=== PATIENT | female | born 1995 | race Asian ===

== ENCOUNTER 2018-11-24 09:42 | Outpatient (CLI) | payer OTHER ==
[2018-11-24 12:28] LABS: BASOPHILS # (AUTO) 0.1 10^3/uL (0.0-0.1); BASOPHILS % (AUTO) 1.2 %; EOSINOPHILS # (AUTO) 0.1 10^3/uL (0.0-0.7); EOSINOPHILS % (AUTO) 1.6 %; HGB - HEMOGLOBIN 12.6 g/dL (12.0-16.0); LYMPHOCYTES # (AUTO) 1.9 10^3/uL (1.5-3.5); LYMPHOCYTES % (AUTO) 27.4 %; MEAN CORPUSCULAR HEMOGLOBIN 28.6 pg (27.0-31.0); MEAN CORPUSCULAR HGB CONC 33.1 g/dL (32.0-36.0); MEAN CORPUSCULAR VOLUME 86.5 fL (81.0-99.0); MEAN PLATELET VOLUME 7.2 fL (7.9-10.8); MONOCYTES # (AUTO) 0.5 10^3/uL (0.0-1.0); NEUTROPHILS # (AUTO) 4.3 10^3/uL (1.5-6.6); NEUTROPHILS % (AUTO) 62.8 %; PLT - PLATELET COUNT 280 10^3/uL (130-450); RED BLOOD COUNT 4.39 10^6/uL (4.20-5.40); RED CELL DISTRIBUTION WIDTH 13.4 % (12.0-15.0); WHITE BLOOD COUNT 6.8 x10^3/uL (4.8-10.8)
[2018-11-24 13:33] LABS: HB2 TOTAL 13.7 g/dL; HEMOGLOBIN A1C 0.47 g/dL; HEMOGLOBIN A1C % 5.3 % (4.6-6.2)
[2018-11-24 13:41] LABS: ALBUMIN 4.1 g/dL (3.2-5.5); ALBUMIN/GLOBULIN RATIO 1.2 (1.0-2.2); ALKALINE PHOSPHATASE 42 IU/L (42-121); ALT ALANINE AMINOTRANSFERASE 17 IU/L (10-60); AST ASPARTATE AMINOTRANSFERASE 20 IU/L (10-42); BILIRUBIN,TOTAL 0.5 mg/dL (0.2-1.0); BUN - BLOOD UREA NITROGEN 11 mg/dL (6-20); CALCIUM 8.7 mg/dL (8.5-10.3); CARBON DIOXIDE - CO2 24 mmol/L (21-32); CHLORIDE 103 mmol/L (101-111); CHOL/HDL RATIO 2.6 (<4.4); CHOLESTEROL 161 mg/dL; CREATININE 0.5 mg/dL (0.4-1.0); GFR - MDRD 152 (>89); GLUCOSE 97 mg/dL (70-100); HDL CHOLESTEROL 61 mg/dL; LDL CHOLESTEROL,CALCULATED 90 mg/dL; LDL/HDL RATIO 1.5 (<4.4); SODIUM 133 mmol/L (135-145); TOTAL PROTEIN 7.6 g/dL (6.7-8.2); VLDL CHOLESTEROL 10 mg/dL
== END 2018-11-24 23:59 | disposition home or self-care (01) ==
LOC: LAB.WCP 09:42
PROVIDERS: ATTEND Physician Assistant
DX: Z00.00 Encounter for general adult medical examination without abnormal findings (principal); Z33.1 Pregnant state, incidental
CPT/HCPCS: 36415; 80053; 80061; 83036; 83721; 84443; 84702; 85025

== ENCOUNTER 2018-12-09 22:10 | Outpatient (CLI) | payer OTHER ==
--- NOTE | 2018-12-10 00:37 | Ultrasound Report ---
Reason: Procedure Date: 12/09/2018 Accession Number: [id number] / [id number] Procedure: US - OB First Trimester CPT Code: FULL RESULT: EXAM: FIRST TRIMESTER OBSTETRIC ULTRASOUND (Less than 11 weeks) EXAM DATE: 12/09/2018 11:15 PM. CLINICAL HISTORY: . LMP: 09/27/2018. COMPARISONS: None. TECHNIQUE: Transabdominal and transvaginal ultrasound examination with static image documentation. CLINICAL DATES: EGA 10 weeks 3 days with HATTIE 07/04/2019 based on LMP. ASSESSMENT: Gestational Sac: Single intrauterine. Mean gestational sac diameter: 31.9 mm = 8 weeks 1 day. Embryo: CRL (crown-rump length) 21.1 mm = 8 weeks 5 days. Cardiac activity: 169 beats per minute. Yolk sac: 3.4 mm. Amniotic fluid: Not accurately assessed at this gestational age. Early placenta: Not visible at this gestational age. Other: No perigestational fluid collection demonstrated. MATERNAL STRUCTURES: Uterus: Retroverted. Unremarkable. Cervix: Closed. Right Ovary/Adnexa: The ovary measures 3.6 x 2.1 x 1.7 cm, volume 7 cc. Unremarkable. Left Ovary/Adnexa: The ovary measures 3.7 x 2.3 x 1.9 cm, volume 8 cc. Unremarkable. Free Fluid: None. Other: None. IMPRESSION: 1. Single viable intrauterine at EGA 8 weeks 5 days with HATTIE 07/16/2019 based on crown-rump length, which is discordant with LMP dating. 2. Assigned dating is HATTIE 07/16/2019 based on current ultrasound.. RADIA
== END 2018-12-09 22:11 | disposition home or self-care (01) ==
LOC: DI 22:10
PROVIDERS: ATTEND Nurse Practitioner Obstetrics & Gynecology
DX: Z32.01 Encounter for pregnancy test, result positive (principal)
CPT/HCPCS: 76801; 76817

== ENCOUNTER 2018-12-14 08:00 | Outpatient (CLI) | payer OTHER ==
[2018-12-14 09:37] LABS: MUDS CUTOFF CONCENTRATIONS CUTOFF CONC BELOW:
[2018-12-14 12:46] LABS: AMPHETAMINE SCREEN,URINE NEGATIVE (NEGATIVE); BASOPHILS # (AUTO) 0.1 10^3/uL (0.0-0.1); BASOPHILS % (AUTO) 0.6 %; BENZODIAZEPINES SCREEN, URINE NEGATIVE (NEGATIVE); COCAINE SCREEN URINE NEGATIVE (NEGATIVE); EOSINOPHILS # (AUTO) 0.2 10^3/uL (0.0-0.7); EOSINOPHILS % (AUTO) 1.9 %; HGB - HEMOGLOBIN 12.5 g/dL (12.0-16.0); LYMPHOCYTES # (AUTO) 2.1 10^3/uL (1.5-3.5); LYMPHOCYTES % (AUTO) 23.5 %; MEAN CORPUSCULAR HEMOGLOBIN 28.9 pg (27.0-31.0); MEAN CORPUSCULAR HGB CONC 33.5 g/dL (32.0-36.0); MEAN CORPUSCULAR VOLUME 86.4 fL (81.0-99.0); MEAN PLATELET VOLUME 7.3 fL (7.9-10.8); METHADONE SCREEN, URINE NEGATIVE (NEGATIVE); METHAMPHETAMINES SCREEN, URINE NEGATIVE (NEGATIVE); MONOCYTES # (AUTO) 0.7 10^3/uL (0.0-1.0); MONOCYTES % (AUTO) 7.4 %; NEUTROPHILS # (AUTO) 5.9 10^3/uL (1.5-6.6); NEUTROPHILS % (AUTO) 66.6 %; OPIATE SCREEN, URINE NEGATIVE (NEGATIVE); OXYCODONE SCREEN, URINE NEGATIVE (NEGATIVE); PLT - PLATELET COUNT 292 10^3/uL (130-450); PROPOXYPHENE SCREEN, URINE NEGATIVE (NEGATIVE); RED BLOOD COUNT 4.32 10^6/uL (4.20-5.40); RED CELL DISTRIBUTION WIDTH 13.3 % (12.0-15.0); TRICYCLIC ANTIDEPRESSANT,URINE NEGATIVE (NEGATIVE); WHITE BLOOD COUNT 8.9 x10^3/uL (4.8-10.8)
[2018-12-15 12:16] LABS: HEPATITIS C ANTIBODY NON-REACTIVE (NON-REACTIVE)
[2018-12-15 13:13] LABS: HEPATITIS B SURFACE ANTIGEN NON-REACTIVE (NON-REACTIVE)
[2018-12-15 14:33] LABS: HIV AG/AB 4TH GEN NON-REACTIVE (NON-REACTIVE)
== END 2018-12-14 08:01 | disposition home or self-care (01) ==
LOC: LAB.WCP 08:00
PROVIDERS: ATTEND Nurse Practitioner Obstetrics & Gynecology
DX: Z36.89 Encounter for other specified antenatal screening (principal)
CPT/HCPCS: 36415; 80306; 81599; 85025; 86592; 86762; 86803; 86850; 86900; 86901; 87340; 87389

== ENCOUNTER 2019-02-11 10:20 | Outpatient (CLI) | payer OTHER ==
[2019-02-11 20:53] LABS: TRICHOMONAS VAGINALIS DNA NEGATIVE (NEGATIVE)
== END 2019-02-11 23:59 | disposition home or self-care (01) ==
LOC: LAB.R 10:20
PROVIDERS: ATTEND Nurse Practitioner Obstetrics & Gynecology
DX: Z36.89 Encounter for other specified antenatal screening (principal)
CPT/HCPCS: 87491; 87591; 87661

== ENCOUNTER 2019-02-15 08:28 | Outpatient (CLI) | payer OTHER ==
--- NOTE | 2019-02-15 15:10 | Ultrasound Report ---
Reason: SUPERVISION OF NORMAL Procedure Date: 02/15/2019 Accession Number: [id number] / [id number] Procedure: US - OB Detailed Eval CPT Code: FULL RESULT: EXAM: COMPLETE OBSTETRICAL ULTRASOUND EXAM DATE: 02/15/2019 10:37 AM. CLINICAL HISTORY: anatomic survey. COMPARISON: 12/09/2018 TECHNIQUE: Real-time sonographic evaluation of the fetus performed by the oracle data warehouse developer. Multiple risk control field representative static images were saved for review. DATING: Established EGA 18 weeks 3 days with HATTIE 07/16/2019 based on first ultrasound 12/09/2018. EGA 18 weeks 2 days with HATTIE 07/17/2019 based on the current ultrasound. GENERAL EVALUATION Muse . Cardiac activity: 144 bpm. movement: Present Presentation: Variable Placenta: Anterior position. No evidence for previa. Umbilical cord: 3 vessel cord. Central placental cord origin. Amniotic fluid: Subjectively normal. MVP 3.9 cm. BIOMETRY Bi-Parietal Diameter (BPD): 4.1 cm, 18 weeks 3 days Head Circumference (HC): 15.1 cm, 18 weeks 1 day Abdominal Circumference (AC): 13 cm, 18 weeks 4 days Femur Length (FL): 2.9 cm, 18 weeks 5 days Estimated Weight: 247 g, 54th percentile for 18 weeks 3 days. ANATOMY The intracranial structures, profile, face/nose/lips, spine, stomach, abdominal wall and cord insertion, kidneys, bladder, and extremities were visualized and demonstrate no abnormality. cardiac anatomy and diaphragm are suboptimally imaged. Suggest follow-up ultrasound in 2 weeks. MATERNAL STRUCTURES Uterus: Unremarkable. Cervix: Long and closed. Transabdominal length 3.7 cm. Right ovary/adnexa: Unremarkable. Left ovary/adnexa: Unremarkable. Free fluid: None. IMPRESSION: 1. Muse live intrauterine with gestational age 18 weeks 3 days based on first ultrasound. 2. Estimated weight is within expected limits for assigned dating. 3. Normal anatomic survey except for cardiac anatomy and diaphragm which are not well seen today. Suggest follow-up ultrasound in 2 weeks. RADIA
== END 2019-02-15 08:29 | disposition home or self-care (01) ==
LOC: DI 08:28
PROVIDERS: ATTEND Registered Nurse
DX: Z34.92 Encounter for supervision of normal pregnancy, unspecified, second trimester (principal)
CPT/HCPCS: 76811

== ENCOUNTER 2019-02-25 14:58 | Outpatient (CLI) | payer OTHER ==
--- NOTE | 2019-02-26 16:46 | Ultrasound Report ---
Reason: ENCOUNTER FOR OTHER SPECIFIED SCREENING Procedure Date: 02/25/2019 Accession Number: [id number] / [id number] Procedure: US - OB F/U or Repeat CPT Code: FULL RESULT: EXAM: FOLLOW-UP OBSTETRICAL ULTRASOUND EXAM DATE: 02/25/2019 04:15 PM. CLINICAL HISTORY: Incomplete anatomy survey COMPARISON: 02/15/2019. TECHNIQUE: Real-time sonographic evaluation of the fetus performed by the delta system freight car cleaner. Multiple containers sales representative static images were saved for review. DATING: Established EGA 19 weeks 6 days with HATTIE 07/16/2019 based on established dates. GENERAL EVALUATION Muse . Cardiac activity: 151 bpm. movement: Visualized. Presentation: Cephalic. Placenta: Anterior position. No previa. Amniotic fluid: Within normal limits. LANDY 15.7 cm. MVP 4.6 cm. ANATOMY Four-chamber heart, RVOT, LVOT, and diaphragm are seen and are unremarkable. MATERNAL STRUCTURES Cervix is closed, measuring 4.5 cm. IMPRESSION: 1. Muse live intrauterine with gestational age 19 weeks 6 days based on established dates.. 2. Four-chamber heart, RVOT, LVOT, and diaphragm are seen and are unremarkable. RADIA
== END 2019-02-25 14:59 | disposition home or self-care (01) ==
LOC: DI 14:58
PROVIDERS: ATTEND Registered Nurse
DX: Z36.89 Encounter for other specified antenatal screening (principal)
CPT/HCPCS: 76816

== ENCOUNTER 2019-04-25 08:00 | Outpatient (CLI) | payer OTHER | END 2019-04-25 23:59 | disposition home or self-care (01) | LOC: LAB.R 08:00 | PROVIDERS: ATTEND Obstetrics & Gynecology | DX: O99.89 Other specified diseases and conditions complicating pregnancy, childbirth and the puerperium (principal); R10.2 Pelvic and perineal pain | CPT/HCPCS: 82731 ==

== ENCOUNTER 2019-05-02 08:00 | Outpatient (CLI) | payer OTHER ==
[2019-05-02 12:11] LABS: HGB - HEMOGLOBIN 10.2 g/dL (12.0-16.0); MEAN CORPUSCULAR HEMOGLOBIN 26.6 pg (27.0-31.0); MEAN CORPUSCULAR VOLUME 85.7 fL (81.0-99.0); MEAN PLATELET VOLUME 9.3 fL (7.9-10.8); RED BLOOD COUNT 3.84 10^6/uL (4.20-5.40); RED CELL DISTRIBUTION WIDTH 13.8 % (12.0-15.0); WHITE BLOOD COUNT 10.9 x10^3/uL (4.8-10.8)
== END 2019-05-02 23:59 | disposition home or self-care (01) ==
LOC: LAB.WCP 08:00
PROVIDERS: ATTEND Obstetrics & Gynecology
DX: Z36.89 Encounter for other specified antenatal screening (principal)
CPT/HCPCS: 36415; 82950; 85027; 86850

== ENCOUNTER 2019-05-13 08:24 | Outpatient (CLI) | payer OTHER | END 2019-05-13 08:25 | disposition home or self-care (01) | LOC: LAB 08:24 | PROVIDERS: ATTEND Obstetrics & Gynecology | DX: O99.810 Abnormal glucose complicating pregnancy (principal) | CPT/HCPCS: 36415; 82951; 82952 ==

== ENCOUNTER 2019-06-17 17:01 | Outpatient (CLI) | payer OTHER ==
--- NOTE | 2019-06-20 04:15 | Ultrasound Report ---
Reason: GESTATIONAL DIABETES - GROWTH AND LANDY Procedure Date: 06/17/2019 Accession Number: [id number] / [id number] Procedure: US - OB F/U or Repeat CPT Code: Final Report FULL RESULT: EXAM: FOLLOW-UP OBSTETRICAL ULTRASOUND EXAM DATE: 06/17/2019 06:06 PM. CLINICAL HISTORY: GESTATIONAL DIABETES - GROWTH AND LANDY. COMPARISON: OB F/U OR REPEAT 02/25/2019 3:12 PM OB DETAILED EVAL 02/15/2019 8:37 AM. TECHNIQUE: Real-time sonographic evaluation of the fetus performed by the manager activities. Multiple construction representative static images were saved for review. DATING: Established EGA 35 weeks 6 days with HATTIE 07/16/2019 based on initial ultrasound. EGA 37 weeks 4 days with HATTIE 07/04/2019 based on LMP. EGA 34 weeks 3 days with HATTIE 07/26/2019 based on the current ultrasound. GENERAL EVALUATION Muse . Cardiac activity: 147 bpm. movement: Visualized. Presentation: Cephalic. Placenta: Anterior position. Amniotic fluid: Normal. LANDY 14.6 cm. MVP 7.1 cm. BIOMETRY Bi-Parietal Diameter (BPD): 8.4 cm, 34 weeks 0 days Head Circumference (HC): 30.7 cm, 34 weeks 1 day Abdominal Circumference (AC): 31.1 cm, 35 weeks 0 days Femur Length (FL): 6.7 cm, 34 weeks 3 days Estimated Weight: 2488 g, 20.2 percentile for 35 weeks 6 days. MATERNAL STRUCTURES Cervix: 5.3 cm on transabdominal images. IMPRESSION: 1. Muse live intrauterine with gestational age 35 weeks 6 days based on initial ultrasound. 2. Estimated weight is within expected limits for assigned dating. 3. Normal interval growth compared to 02/15/2019. RADIA
== END 2019-06-17 17:02 | disposition home or self-care (01) ==
LOC: DI 17:01
PROVIDERS: ATTEND Nurse Practitioner Obstetrics & Gynecology
DX: O24.419 Gestational diabetes mellitus in pregnancy, unspecified control (principal)
CPT/HCPCS: 76816

== ENCOUNTER 2019-06-22 08:00 | Outpatient (CLI) | payer OTHER ==
[2019-06-22 21:59] LABS: TRICHOMONAS VAGINALIS DNA NEGATIVE (NEGATIVE)
== END 2019-06-22 23:59 | disposition home or self-care (01) ==
LOC: LAB.R 08:00
PROVIDERS: ATTEND Nurse Practitioner Obstetrics & Gynecology
DX: Z36.85 Encounter for antenatal screening for Streptococcus B (principal); Z11.3 Encounter for screening for infections with a predominantly sexual mode of transmission
CPT/HCPCS: 87491; 87591; 87661; 87797

== ENCOUNTER 2019-07-12 08:54 | Inpatient (IN) | payer OTHER ==
[2019-07-12] MEDS ORDERED: ONDANSETRON 4 MG/2 ML VIAL IVP PRN (09:21)
[2019-07-12] MEDS ORDERED: OXYTOCIN/DEXTROSE 5 % 30 UNIT/500 ML BAG IV PRN (09:21)
[2019-07-12] MEDS ORDERED: SODIUM CHLORIDE FLUSH 0.9% 10 ML SYRINGE IVP PRN (09:21)
[2019-07-12] MEDS ORDERED: fentaNYL 100 MCG/2 ML VIAL IVP PRN (09:21)
[2019-07-12 09:49] LABS: BASOPHILS # (AUTO) 0.1 10^3/uL (0.0-0.1); BASOPHILS % (AUTO) 0.5 %; EOSINOPHILS % (AUTO) 0.3 %; HGB - HEMOGLOBIN 10.9 g/dL (12.0-16.0); LYMPHOCYTES # (AUTO) 1.7 10^3/uL (1.5-3.5); LYMPHOCYTES % (AUTO) 16.6 %; MEAN CORPUSCULAR HEMOGLOBIN 25.1 pg (27.0-31.0); MEAN CORPUSCULAR HGB CONC 31.3 g/dL (32.0-36.0); MEAN PLATELET VOLUME 9.3 fL (7.9-10.8); MONOCYTES # (AUTO) 0.8 10^3/uL (0.0-1.0); MONOCYTES % (AUTO) 7.8 %; NEUTROPHILS # (AUTO) 7.6 10^3/uL (1.5-6.6); NEUTROPHILS % (AUTO) 73.8 %; PLT - PLATELET COUNT 262 10^3/uL (130-450); RED BLOOD COUNT 4.35 10^6/uL (4.20-5.40); RED CELL DISTRIBUTION WIDTH 15.5 % (12.0-15.0); WHITE BLOOD COUNT 10.2 x10^3/uL (4.8-10.8)
[2019-07-12] MEDS ORDERED: ACETAMINOPHEN 325 MG TABLET PO SCH (10:00)
[2019-07-12] MEDS ORDERED: LACTATED RINGERS 1,000 ML IV SCH (10:00)
--- NOTE | 2019-07-12 10:49 | HISTORY & PHYSICAL EXAMINATION ---
Admit History - Visit Reason Visit Reason: Contractions - : 3 Parity: 1 Premature: 0 Ectopic: 0 : 1 Care: positive: [facility] Risk/History: positive: None Complications This : positive: Gestational diabetes Smoking Status: Former smoker - Mother's Labs Mother's Blood Type: positive: O Mother's RH: positive: Positive GBS: positive: Group B Step Negative Rubella Status: positive: Equivocal Meds/Allgy - Allergies Allergies/Adverse Reactions: Allergies Allergy/AdvReac Type Severity Reaction Status Date / Time No Known Drug Allergies Allergy Verified 07/12/19 09:55 Review of Systems - Constitutional Constitutional: denies: Fatigue, Fever, Chills, Malaise - Eyes Eyes: denies: Blurred vision, Spots in vision, Vision loss - Cardiovascular Cariovascular: denies: Irregular heart rate, Palpitations, Chest pain, Edema - Respiratory Respiratory: denies: SOB at rest - Gastrointestinal Gastrointestinal: denies: Change in bowel habits - Integumentary Integumentary: denies: Rash, Pruritis - Neurological Neurological: denies: Headache, Dizziness Physical - Abdominal Exam Vital Signs: Temp Pulse Resp BP Pulse Ox 36.6 C 109 H 20 114/75 100 07/12/19 09:10 07/12/19 09:10 07/12/19 09:10 07/12/19 09:10 07/12/19 09:10 Contraction Frequency (min/apart): 2-3 Contraction Intensity: positive: Strong Uterine Resting Tone: positive: Soft - Monitoring Heart Rate Baseline: 130 Strip Review: positive: Category I - Presentation Presentation: positive: Vertex - Vaginal Exam Membranes: positive: Membranes intact Dilation (in cm): 6 - Speculum Exam Speculum Exam Performed: positive: No Plan for Labor - Plan For Labor I expect patient to be DC'd or transferred within 96 hours.: Yes Plan for Labor: HPI: Linsey is a 24yo @ 39.3wks gestation by 8.5wk U/S presents with c/o contractions that began this morning at 0400am and have become increasingly uncomfortable. She denies vaginal bleeding or leakage for fluid. She reports +FM. She has been a patient of [facility] for the duration of her which has been complicated only by gestational diabetes diagnosed at 30wks gestation. She has maintained tight glycemic control throughout and her third trimester growth and LANDY were WNL with EFW 20.2%tile. She was admitted to [facility] for expectant management. Dating criteria: LMP 09/27/2018 Initial ultrasound 12/09/2018 disconcordant with LMP and dates at 8.5wks gestation Serial exams - agree OB Hx: G1: 2009 8wks gestation - D&C G2: 03/28/2012 36wks , unmedicated, Female, 7lbs Medications: Ferrous gluconate; PNV Allergies NKDA PMHx: unremarkable Surgical Hx: Left ear laceration Social Hx: Former smoker - no ETOH or IVDA. Family Hx: Diabetes- Mother, PGM, PGF, MGM, MGF; Alocholism - brother; Anxiety/depression - brother; Breast cancer - paternal aunt; osteoporosis - mother; Hypertension - Mom, dad; Asthma - sister. labs: Blood type O pos, antibody neg Rubella equivocal RPR non-reactive Hgb 10.9; Hct 34.8 PLT 262 GC/CT neg Hep C neg Hep B neg HIV neg Hgb A1C 5.3 1 hour GTT elevated 155- 3 hour GTT diagnoses gestational diabetes - 173, 167, 144 HSV - denies Group B strep NEG; repeat GC/CT neg Immunizations: Tdap 04/25/2019 Influenza administered at outside clinic Ultrasounds: 12/09/2018 initial ultrasound disconcordant with LMP dating and dates at 8.5wks gestation FAS 02/15/2019 WNL with the exception of suboptimal visualization of cardiac structures. Anterior placenta, no previa. Size c/w dating. 02/25/19 f/u WNL Growth and LANDY 06/17/2019 WNL. 20.2%tile. LANDY WNL. Size c/w dating. Physical Exam: Normocephalic, atraumatic PERRLA Heart RRR w/o M/G/R LUngs CTAB Abdomen gravid, soft, nontender EFW 3000g FHR baseline 130s, moderate variability, + accels, no decels Contractions palpate strong every 2-3 minutes with soft resting tone SVE 6cm, vertex, intact membranes Bilateral LE's no edema Assessment: 24yo @ 39.3wks gestation by 8.5wk U/S Active labor GBS neg A1GDM Rubella equivocal - MMR Plan: Admit for expectant management Continuous monitoring Jacuzzi PRN, Nitrous oxide PRN Epidural per maternal request Anticipate
--- NOTE | 2019-07-12 12:18 | PROVIDER PROGRESS NOTE ---
Labor Progress Note - Uterine Monitoring Uterine Monitoring Mode: positive: External toco Contraction Frequency (min/apart): 2-3 Contraction Intensity: positive: Strong Uterine Resting Tone: positive: Soft - Monitoring Monitor Mode: positive: External ultrasound Heart Rate Baseline: 135 Heart Rate Variability: positive: Moderate (6-25 bmp) Accelerations: positive: Present, 15x15 Decelerations: positive: None Strip Review: positive: Category I - Vaginal Exam Dilation (in cm): 7-8 Effacement (%): 90 Cervical Position: Anterior - Labor Progress Note Labor Progress Note/Additional Text: S: Laying on right side and breathing through contractions. She request nitrous oxide for pain management at this time and declines epidural. Her mother is supportive at the bedside. O: Fhr baseline 135, moderate variability, + accels, no decels Contractions palpate strong every 2-3 minutes with soft resting tone AROM at 1215 and was noted to be a moderate amount of clear fluid SVE 7-8/90/0, vertex, anterior, soft/stretchy A: 24yo @ 39.3wks gestation by 8.5wk U/S GBS neg Active labor A1GDM P: Continue expectant management Continuous monitoring Nitrous oxide PRN Epidural per maternal request Anticipate
[2019-07-12] MEDS ORDERED: LIDOCAINE-MPF 1% 30 ML VIAL ONE ×2 (13:07→13:28)
[2019-07-12] MEDS ORDERED: LIDOCAINE-MPF 1% 30 ML VIAL ID PRN (13:15)
[2019-07-12] MEDS ORDERED: WITCH HAZEL/GLYCERIN 1 PAD TOP PRN (14:31)
[2019-07-12] MEDS ORDERED: HYDROCORTISONE 1% CREAM 28 GM TUBE PR PRN (14:31)
[2019-07-12] MEDS: IBUPROFEN 800 MG TABLET PO SCH ×2 (14:45→20:24)
[2019-07-12] MEDS: ACETAMINOPHEN 500 MG TABLET PO SCH ×2 (14:45→20:23)
--- NOTE | 2019-07-12 14:47 | DELIVERY NOTE ---
Delivery Note - Labor Labor: positive: Spontaneous, Augmented by ARM - Infant Delivery Method Delivery Method: positive: Spontaneous vaginal delivery - Presentation Presentation: positive: Vertex, QUIN - left occiput anterior - Nuchal Cord Nuchal Cord: positive: Present, Reduced - Amniotic Fluid Description Amniotic Fluid Description: positive: Clear - Episiotomy Type Episiotomy Type: positive: None - Laceration Laceration: positive: 2nd degree, Vaginal - Suture Suture Type: positive: Vicryl Suture Size: positive: 2-0 - Delivery Outcome Delivery Outcome: positive: Livebirth - : positive: Placed in direct skin contact with mother, Stimulated, Warmed, [place] used sex: positive: Female - Cord Cord: positive: 3 vessels - Placenta Placenta: positive: Intact, Spontaneous - Estimated Blood Loss Estimated Blood Loss (in cc): 300 - Post Delivery Events Post Delivery Events: positive: No post delivery events - Delivery Comments (Free Text/Narrative) Delivery Comments (Free Text/Narrative): Labor: This 24yo @ 38.3wks gestation by 8.5wk U/S presented in active labor on 08/11/2019 at approximately 0925. Cervix was 6/90/-1, anterior, vertex, with intact membranes. FHR pattern demonstrated Category I pattern throughout labor. AROM at 1215 was noted to be a moderate amount of clear fluid. The patient progressed to c/c/+1 with spontaneous urge to push at 1254. : Normal of viable female on 07/12/2019 @ 1301. Nuchal cord x 1 easily reduced. The was stimulated, dried, and placed skin to skin. 's were 9/9 at 1 and 5 min respectively. The umbilical cord was allowed to stop pulsating at which time it was doubly clamped by CNM and cut by FOB. Pitocin administered via IV for hemostasis. Cord blood was obtained. Placenta delivered spontaneously and intact at 1305. 3VC. Cord blood was obtained. EBL 300mL. Uterine fundus firm and there is no excessive bleeding. The perineum, vagina, and cervix were inspected and found to have 2nd degree vaginal and perineal laceration which was repaired using a 2-[address]-1 needle in standard f ashion under sterile conditions. Vaginal examination following repair was done. Tissues well approximated. initiated. Family bonding well. Both mother and baby were left in stable condition.
[2019-07-12] MEDS ORDERED: SODIUM CHLORIDE FLUSH 0.9% 10 ML SYRINGE IVP SCH (17:00)
[2019-07-12] MEDS: DOCUSATE SODIUM 100 MG CAPSULE PO SCH (20:24)
[2019-07-13] MEDS: IBUPROFEN 800 MG TABLET PO SCH ×2 (05:24→12:20)
[2019-07-13] MEDS: ACETAMINOPHEN 500 MG TABLET PO SCH ×2 (05:24→13:54)
[2019-07-13] MEDS: DOCUSATE SODIUM 100 MG CAPSULE PO SCH (09:13)
--- NOTE | 2019-07-13 12:23 | Discharge Plan ---
Discharge Plan Problem Reviewed?: Yes Disposition: Home, Self Care Condition: Good Diet: Regular Activity Restrictions: No Restrictions Shower Restrictions: No Driving Restrictions: No Weight Bearing: Full Weight No Smoking: If you smoke, Please STOP! Call for help. Follow-up with: Savanah Haque CNM, ARNP [Provider Admit Priv/Credential] -
--- NOTE | 2019-07-13 12:27 | PROVIDER PROGRESS NOTE ---
Subjective - Subjective Subjective: FINAL PROGRESS NOTE: S: Bonding well with baby. without difficulty. Bleeding decreased and is light. Pain well controlled with oral medications. She is excited to go home today. O: Heart RRR w/o M/G/R, lungs CTAB, abdomen soft and nontender with fundus firm at U. Perineum intact and repair with mild edema. Bilateral LE's no edema. A: 24yo -->P2 PPD#1 s/p TSVD of viable female A1GDM P: Reviewed pp self care and warning s/sx and when to present. Advised continuation of PNV while Advised continuation of ibuprofen and tylenol OTC for pain management. F/u in 1 week for support visit PRN and in 3 weeks for routine pp visit or sooner PRN. Pt and family present at the bedside verbalized understanding and agree to above plan. They deny further questions or concerns at this time. Objective - Vital Signs/Intake & Output Vital Signs: Vital Signs x48h Temp Pulse Resp BP Pulse Ox 07/13/19 07:43 36.4 C L 66 16 100/53 L 99 07/13/19 05:00 37.2 C 76 18 113/71 100 Intake & Output: Intake & Output 07/10/19 07/11/19 07/12/19 07/13/19 23:59 23:59 23:59 23:59 Intake Total 1100 Output Total 600 Balance 500 - Lab Results Fish Bones: 07/12/19 09:40
[2019-07-13 15:36] VITALS: BP 111/71
--- NOTE | 2019-07-13 18:34 | Labor Flowsheet ---
Labor Flowsheet Datetime Report Generated by CPN: 07/13/2019 18:34 Datetime: 07/13/2019 15:30 VITAL SIGNS NBP Sys/Samanta/Mean (mmHg): 111 : 71 : 80 Pulse: 76 LaborFlag: Labor Datetime: 07/12/2019 15:34 SpO2 (%): 100 Datetime: 07/12/2019 12:55 COMMUNICATION Communication: Provider at Bedside Datetime: 07/12/2019 12:54 Monitor Interventions for FHR: Ultrasound Adjusted Comments: patient began pushing STAGE 2 Pushing: Urge to Push Pushing Position: Pushing with Contractions Pushing Progress: Presenting Part Visible Datetime: 07/12/2019 12:50 Provider Notified (Name): A Garland CNM Communication Comments: patient with anterior lip Datetime: 07/12/2019 12:49 VAGINAL EXAM Dilatation (cm): 9.5 Effacement (%): 100 Station: 1 Exam by: S.Godfrey RN Datetime: 07/12/2019 12:45 UTERINE ACTIVITY Monitor Mode: External Frequency (min): 2-3 Quality: Strong Duration (sec): 60-90 Pattern: Normal: <= 5 Contractions in 10 Minutes Resting Tone (Palpate): Relaxed ASSESSMENT A Monitor Mode: Telemetry FHR Baseline Rate : 130 Variability: Minimal - Undetectable to <=5 bpm Accelerations: None Decelerations: Early Category: Category II Oxygen Method: Room Air Datetime: 07/12/2019 12:34 Monitor Interventions for UA: [place] Adjusted Datetime: 07/12/2019 12:21 Respirations: 20 Temperature (C): 37.4 Temperature Route: Oral PAIN Pain Scale: 8 Pain Presence: Intermittent Pain Type: Contraction Pain Location: Abdomen Pain Relief Measures: Comfort Measures Datetime: 07/12/2019 12:18 Pain Assessment Comments: nitrous gas started Patient Position/Activity: Right Lateral Datetime: 07/12/2019 12:11 Membrane Status: Ruptured Membranes Rupture Method: Artificial Amniotic Fluid Color: Clear Amniotic Fluid Odor: Normal Datetime: 07/12/2019 12:10 Cervix, Consistency: Soft Datetime: 07/12/2019 12:01 Pain Coping: Breathing Through Contractions; Declines Medication or Epidural Comfort Measures: Breathing/Relaxation; Back Rub Given; Family Support Datetime: 07/12/2019 10:06 PATIENT CARE IV/Blood Work: IV Started
--- NOTE | 2019-07-14 12:14 | DISCHARGE SUMMARY ---
Physician: BRENNA Blake DATE OF ADMISSION: 07/12/2019 DATE OF DISCHARGE: 07/13/2019 DIAGNOSES ON ADMISSION 1. A 24-year-old, G3, P1-0-1-1, at 39.3 weeks gestation. 2. Active labor. 3. A1 gestational diabetes mellitus. 4. Group B Streptococcus negative. DIAGNOSES ON DISCHARGE 1. A 24-year-old, G3, P2-0-1-2, status post spontaneous vaginal delivery on 07/12/2019. 2. . 3. Normal recovery. HISTORY OF PRESENT ILLNESS: She is a patient of [facility] who presented on 019 with complaints of contractions. The patient was found to contract every 2-3 minutes and cervix was noted to be 6 cm dilated, 90% effaced, -1 position, vertex with intact membranes. Artificial rup ture of membranes occurred at 1215 and there was noted to be a moderate amount of clear fluid. The p atient progressed to spontaneously deliver a viable female infant on 07/12/2019 at 1301. Apgars were 9 and 9 at one and five minutes respectively. EBL was 300 mL. The perineum, vagina and cervix were inspected and found to have second-degree vaginal and perineal laceration, which was repaired using a 2-0 Vicryl on a CT1 needle in standard fashion under sterile conditions. She has been doing well in her course. She is ambulating and tolerating a regular diet. She is urinating without difficulty and her lochia is normal. Her pain is well controlled with oral medications. She will be discharged home today on day #1 with instructions to continue he r vitamin while , and to take ibuprofen and Tylenol [id number] as needed for pain management. She intends to follow up with myself at [facility] in 1 week f or support visit and in 3 weeks for routine visit. She has been given precautio ns to call if she has any worsening fevers, chills, abdominal pain, increased bleeding or foul-smelli ng vaginal lochia. TD: 07/14/2019 09:56
== END 2019-07-13 17:55 | disposition home or self-care (01) | DRG 807 ==
LOC: WFO 08:54 → FBP 08:57 → WFO 09:20 → FBP 09:21
PROVIDERS: ADMIT Nurse Practitioner Obstetrics & Gynecology; ATTEND Nurse Practitioner Obstetrics & Gynecology
PROC: 10E0XZZ Delivery of Products of Conception, External Approach (ICD-10-PCS; principal; 2019-07-12)
PROC: 0KQM0ZZ Repair Perineum Muscle, Open Approach (ICD-10-PCS; 2019-07-12)
PROC: 10907ZC Drainage of Amniotic Fluid, Therapeutic from Products of Conception, Via Natural or Artificial Opening (ICD-10-PCS; 2019-07-12)
DX: O24.429 Gestational diabetes mellitus in childbirth, unspecified control (principal); Z37.0 Single live birth; O70.1 Second degree perineal laceration during delivery; O69.9XX0 Labor and delivery complicated by cord complication, unspecified, not applicable or unspecified; Z3A.39 39 weeks gestation of pregnancy; Z87.891 Personal history of nicotine dependence; Z83.3 Family history of diabetes mellitus
CPT/HCPCS: 36415; 85025; 99213; A9270; J7120